=== PATIENT | male | born 1975 | race African-American/Black ===

== ENCOUNTER 2024-11-02 13:35 | Emergency (ER) | payer MEDICARE, MEDICAID ==
[~2024-11-02] VITALS: Ht 180.3 cm; Wt 111.0 kg
[2024-11-02 13:56] VITALS: O2SAT 100
[2024-11-02] MEDS: IBUPROFEN 400MG TABLET PO SCH (18:51)
[2024-11-02 18:55] VITALS: BP 136/78; PULSE 88; RESP 18; TEMP 37.1; O2SAT 99
== END 2024-11-02 19:24 | disposition home or self-care (01) ==
LOC: ER 13:35
DX: M25.511 Pain in right shoulder (principal); M54.9 Dorsalgia, unspecified; M79.606 Pain in leg, unspecified; Z79.899 Other long term (current) drug therapy
CPT/HCPCS: 73030; 99283